=== PATIENT | female | born 1995 | race Caucasian/White ===

== ENCOUNTER 2016-06-16 05:54 | Emergency (ER) | payer SELFPAY ==
[2016-06-16 06:08] VITALS: BP 133/71; PULSE 104; RESP 18; TEMP 97.6
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
== END 2016-06-16 06:38 | disposition left against medical advice (07) ==
LOC: EC 05:54
DX: S00.83XA Contusion of other part of head, initial encounter (principal); S09.90XA Unspecified injury of head, initial encounter; F17.200 Nicotine dependence, unspecified, uncomplicated; Y08.89XA Assault by other specified means, initial encounter
CPT/HCPCS: 99284